=== PATIENT | female | born 1950 | race Two or more races ===

== ENCOUNTER 2021-10-12 19:23 | Inpatient (IN) | payer MEDICARE, BC ==
[~2021-10-12] VITALS: Ht 154.9 cm; Wt 44.9 kg
[2021-10-12 23:00] LABS: BASOPHILS % 0.5 % (0.0-2.0); EOSINOPHILS % 0.2 % (0.0-5.0); HEMATOCRIT. 40.7 % (36.0-48.0); HEMOGLOBIN. 12.9 g/dL (12.0-16.0); LYMPHOCYTES % 22.6 % (20.0-50.0); MEAN CORPUSCULAR HEMOGLOBIN 25.1 pg (28.0-32.0); MEAN PLATELET VOLUME 8.9 fl (7.4-10.4); MONOCYTES % 6.8 % (2.0-8.0); NEUTROPHILS % 69.9 % (40.0-76.0); PLATELET 206 x1000/uL (130-400); RED BLOOD CELL COUNT 5.15 mill/uL (4.2-5.4); RED CELL DISTRIBUTION WIDTH 15.6 % (11.6-14.6)
[2021-10-12 23:02] LABS: CHLORIDE 107 mEq/L (98-107)
[2021-10-13 04:00] VITALS: BP 117/75
[2021-10-13] MEDS ORDERED: DIPHENHYDRAMINE 50MG/ML VIAL IV PRN (04:00)
[2021-10-13] MEDS ORDERED: ACETAMINOPHEN 325MG TABLET PO PRN ×2 (04:00)
[2021-10-13] MEDS ORDERED: ZOLPIDEM TARTRATE 5MG TABLET PO PRN (04:00)
[2021-10-13] MEDS ORDERED: MAGNESIUM/ALUMINUM HYDROXIDE/SIMETHICONE 30ML UDC PO PRN (04:00)
[2021-10-13] MEDS ORDERED: CLONIDINE 0.1MG TABLET PO PRN (04:00)
[2021-10-13] MEDS ORDERED: ONDANSETRON HCL 4MG/2ML INJ IV PRN (04:00)
[2021-10-13 05:27] VITALS: BP 117/75
[2021-10-13] MEDS ORDERED: SODIUM CHLORIDE 0.9% INJ 3ML FLUSH IVF SCH (06:00)
[2021-10-13] MEDS ORDERED: LEVO500T90 MT (07:19)
[2021-10-13] MEDS ORDERED: TAMS-11 MT (07:19)
[2021-10-13] MEDS ORDERED: BETH5TAB10 MT (07:19)
[2021-10-13 08:00] VITALS: BP 129/78
[2021-10-13 12:00] VITALS: BP 126/75
[2021-10-13 15:49] VITALS: BP 133/85
== END 2021-10-13 16:21 | disposition home or self-care (01) | DRG 696 ==
LOC: ER 19:23 → 6EST 10-13 02:38 → ENRESERV 10-13 03:22
PROVIDERS: ADMIT Internal Medicine; ATTEND Internal Medicine
DX: R33.9 Retention of urine, unspecified (principal); R10.819 Abdominal tenderness, unspecified site; Z87.440 Personal history of urinary (tract) infections; Z88.8 Allergy status to other drugs, medicaments and biological substances; Z79.899 Other long term (current) drug therapy; Z88.2 Allergy status to sulfonamides
CPT/HCPCS: 36415; 80053; 85025; 99285

== ENCOUNTER 2021-11-29 20:42 | Emergency (ER) | payer MEDICARE, BC ==
[~2021-11-29] VITALS: Ht 154.9 cm; Wt 50.0 kg
[~2021-11-29 20:42] MED LIST: BETH5TAB10 MT; LEVO500T90 MT; TAMS-11 MT
[2021-11-30 01:00] VITALS: BP 120/75
== END 2021-11-30 01:17 | disposition home or self-care (01) ==
LOC: ER 20:42
DX: R33.9 Retention of urine, unspecified (principal); Z87.440 Personal history of urinary (tract) infections; Z85.6 Personal history of leukemia; Z88.2 Allergy status to sulfonamides
CPT/HCPCS: 51702; 99281; 99284

== ENCOUNTER 2022-02-23 20:19 | Emergency (ER) | payer MEDICARE, BC ==
[~2022-02-23] VITALS: Ht 154.9 cm; Wt 42.0 kg
[~2022-02-23 20:19] MED LIST changes: +LEVO-65 MT; -LEVO500T90 MT
[2022-02-23 23:10] LABS: BASOPHILS % 0.8 % (0.0-2.0); EOSINOPHILS % 0.4 % (0.0-5.0); HEMATOCRIT. 40.4 % (36.0-48.0); LYMPHOCYTES % 33.5 % (20.0-50.0); MEAN CORPUSCULAR HEMOGLOBIN 25.8 pg (28.0-32.0); MEAN PLATELET VOLUME 9.3 fl (7.4-10.4); MONOCYTES % 5.9 % (2.0-8.0); NEUTROPHILS % 59.4 % (40.0-76.0); PLATELET 186 x1000/uL (130-400); RED BLOOD CELL COUNT 5.05 mill/uL (4.2-5.4); RED CELL DISTRIBUTION WIDTH 15.5 % (11.6-14.6)
[2022-02-23 23:12] LABS: CHLORIDE 107 mEq/L (98-107)
[2022-02-24 01:31] LABS: CLARITY URINE CLEAR (CLEAR); COLOR URINE YELLOW (YELLOW); KETONES URINE 2+ (NEGATIVE); LEUKOCYTE ESTERASE URINE NEGATIVE (NEGATIVE); NITRITE URINE NEGATIVE (NEGATIVE); OCCULT BLOOD URINE 1+ (NEGATIVE); PH URINE 5.5 (4.5-8.0); PROTEIN URINE NEGATIVE (NEGATIVE); SPECIFIC GRAVITY URINE 1.018 (1.005-1.030); UROBILINOGEN URINE 0.2 E.U./dL (0.2-1.0)
[2022-02-24 03:00] VITALS: BP 129/69
== END 2022-02-24 03:45 | disposition home or self-care (01) ==
LOC: ER 20:19
DX: N93.9 Abnormal uterine and vaginal bleeding, unspecified (principal); R22.2 Localized swelling, mass and lump, trunk; F41.9 Anxiety disorder, unspecified; Z88.2 Allergy status to sulfonamides; Z91.040 Latex allergy status
CPT/HCPCS: 36415; 76770; 76830; 76856; 80048; 81003; 85025; 86850; 86900; 99284